=== PATIENT | female | born 1955 | race Caucasian/White ===

== ENCOUNTER → 2021-02-12 | Outpatient (CLI) | payer OTHER, MEDICAID ==
[2021-02-12 15:09] LABS: BLOOD UREA NITROGEN 14 MG/DL (7-18); CARBON DIOXIDE LEVEL 27 MEQ/L (21-32); CHLORIDE LEVEL 98 MEQ/L (98-107); CREATININE FOR GFR 0.84 MG/DL (0.55-1.30); GLOMERULAR FILTRATION RATE > 60.0 (>45); GLUCOSE, FASTING 212 MG/DL (70-100); POTASSIUM SERUM 3.9 MEQ/L (3.5-5.1); SODIUM LEVEL 132 MEQ/L (136-145)
== END ==
LOC: M LAB 13:14
PROVIDERS: ATTEND Internal Medicine Cardiovascular Disease
DX: I10 Essential (primary) hypertension (principal)

== ENCOUNTER → 2021-02-16 | Outpatient (CLI) | payer OTHER ==
[~2021-02-16] MED LIST: ISOVUE-370 76% 100ML VIAL As Ordered ONE
--- NOTE | 2021-02-16 11:33 | REP ---
INDICATION: DYSPNEA, ABN COAGULATION. COMPARISON: None. TECHNIQUE: CT angiogram chest performed following the intravenous administration of 75 cc of Isovue 370. Sagittal and coronal standard and MIP reconstruction images are provided. FINDINGS: Lungs: There is dependent atelectasis posteriorly in the mid and lower lung zones is also some peripheral interstitial change that may reflect some fibrosis. No mass, dense consolidation or apical scar. Some minimal cylindrical bronchiectatic change. There is a 6.6 mm fissural nodule peripherally in the right mid lung zone. Mediastinum: Subcentimeter precarinal, AP window, subcarinal, right paratracheal nodes are present without mass Pulmonary arteries: The main, right and left pulmonary arteries in the mediastinum are without filling defects. Lobar, segmental and visible subsegmental arteries are likewise without filling defects or vessel cut off. Lisandra: No pathologic sized adenopathy. Axilla: No pathologic sized adenopathy. Pleura: No effusion, pleural based mass or calcified pleural plaque. No pneumothorax. Heart: Not enlarged. Thoracic aorta: No aneurysm or dissection. Upper abdominal structures: Liver is seen only in part but I suspect may be enlarged. Fatty infiltration noted there is no visible hepatic mass or biliary dilatation or perihepatic ascites. Gallbladder surgically absent with clips in the fossa. No hiatal hernia. Spleen is not enlarged and appears unremarkable. That portion of pancreas and upper poles of kidneys seen were unremarkable. Adrenal glands normal. Visualized osseous structures: Thoracic spine, sternum, manubrium, medial clavicles, visualized portions of scapulae, humeral heads and ribs show some marginal osteophytes without destructive lesion or fractures anywhere. IMPRESSION: No CT evidence of pulmonary embolism. No infiltrate seen. No aortic aneurysm or dissection. Lung rojo show some dependent atelectatic changes and a 6.6 mm fissural nodule on the right which is solid and according to Fleischner Society guidelines for pulmonary nodule follow-up for new 6-8 mm nodules, a CT recommended in 6-12 months and another at 18-24 months if at high risk, consider the 2nd CT if at low risk for development of malignancy. <Electronically signed by Tirso Murray > 02/16/21 [id number]
== END ==
LOC: M RAD 09:30
PROVIDERS: ATTEND Internal Medicine Cardiovascular Disease
DX: R06.00 Dyspnea, unspecified (principal); R79.1 Abnormal coagulation profile; R91.1 Solitary pulmonary nodule
CPT/HCPCS: 71275; Q9967

== ENCOUNTER → 2021-03-06 | Outpatient (CLI) | payer OTHER | LOC: M LABSMTC 09:07 | PROVIDERS: ATTEND Internal Medicine Interventional Cardiology | DX: Z20.822 Contact with and (suspected) exposure to COVID-19 (principal) ==

== ENCOUNTER → 2021-05-10 | Outpatient (CLI) | payer MEDICARE, OTHER | LOC: M RAD 10:26 | PROVIDERS: ATTEND Surgery Vascular Surgery | DX: I65.23 Occlusion and stenosis of bilateral carotid arteries (principal); I70.0 Atherosclerosis of aorta; M50.30 Other cervical disc degeneration, unspecified cervical region | CPT/HCPCS: 70496; 70498; Q9967 ==

== ENCOUNTER → 2021-06-16 | Outpatient (CLI) | payer OTHER ==
[~2021-06-16] MED LIST changes: -ISOVUE-370 76% 100ML VIAL As Ordered ONE; +PROHANCE 279.3MG/ML 15ML VIAL As Ordered ONE; +PROHANCE 279.3MG/ML 5ML VIAL As Ordered ONE
== END ==
LOC: M RAD 12:18
PROVIDERS: ATTEND Physician Assistant
DX: I65.23 Occlusion and stenosis of bilateral carotid arteries (principal)
CPT/HCPCS: 70547; A9576

== ENCOUNTER → 2022-05-16 | Outpatient (CLI) | payer OTHER, MEDICAID | LOC: M RAD 10:54 | PROVIDERS: ATTEND Pediatrics | DX: I70.0 Atherosclerosis of aorta (principal); J84.170 Interstitial lung disease with progressive fibrotic phenotype in diseases classified elsewhere; Z90.89 Acquired absence of other organs ==

== ENCOUNTER → 2022-07-20 | Outpatient (REF) | payer OTHER, MEDICAID, MEDICARE ==
[2022-07-20 14:24] LABS: ALBUMIN 3.7 G/DL (3.2-5.2); ALKALINE PHOSPHATASE 132 U/L (46-116); ALT/SGPT 24 U/L (7.0-40); AST/SGOT 23 U/L (<34); BILIRUBIN,TOTAL 0.4 MG/DL (0.3-1.2); BLOOD UREA NITROGEN 14 MG/DL (9-23); CALCIUM LEVEL 9.8 MG/DL (8.3-10.6); CARBON DIOXIDE LEVEL 28 MMOL/L (20-31); CHLORIDE LEVEL 100 MMOL/L (98-107); CHOLESTEROL LEVEL 147 MG/DL (<200); CHOLESTEROL RISK RATIO 4.23 (<5); CREATININE FOR GFR 0.82 MG/DL (0.55-1.30); GLOMERULAR FILTRATION RATE > 60.0 (>45); GLUCOSE, FASTING 151 MG/DL (74-106); HDL CHOLESTEROL 34.7 MG/DL (>40); LDL CHOLESTEROL 75.1 MG/DL (<100); NON-HDL-C 112.3 MG/DL; POTASSIUM SERUM 4.7 MMOL/L (3.5-5.1); SODIUM LEVEL 135 MMOL/L (136-145); TOTAL PROTEIN 7.6 G/DL (5.7-8.2); TRIGLYCERIDES LEVEL 186 MG/DL (<150)
[2022-07-20 14:25] LABS: TOTAL 25(OH) VITAMIN D 26.4 NG/ML (20.0-100.0)
[2022-07-20 14:26] LABS: THYROID STIMULATING HORMONE 2.045 uIU/ML (0.55-4.78)
[2022-07-20 15:47] LABS: HEMOGLOBIN A1c 6.9 % (4.0-6.0)
== END ==
LOC: M LAB REF 12:43
PROVIDERS: ATTEND Pediatrics
DX: E11.69 Type 2 diabetes mellitus with other specified complication (principal); E78.2 Mixed hyperlipidemia; E55.9 Vitamin D deficiency, unspecified

== ENCOUNTER → 2022-08-05 | Outpatient (CLI) | payer OTHER, MEDICAID | LOC: M WHC 10:24 | PROVIDERS: ATTEND Pediatrics | DX: Z12.31 Encounter for screening mammogram for malignant neoplasm of breast (principal) ==

== ENCOUNTER → 2022-10-21 | Outpatient (REF) | payer OTHER, MEDICAID ==
[2022-10-21 17:06] LABS: BASO # 0.1 10^3/uL (0.0-0.2); BASO % 1.2 % (0.0-1.0); EOS # 0.2 10^3/uL (0.0-0.5); EOS % 2.7 % (0.0-3.0); HEMATOCRIT 44.6 % (36.0-47.0); HEMOGLOBIN 14.7 g/dl (12.0-15.5); LYMPH # 2.2 10^3/uL (1.5-5.0); LYMPH % 32.3 % (24.0-44.0); MEAN CORPUSCULAR HEMOGLOBIN 30.4 pg (27.0-33.0); MEAN CORPUSCULAR VOLUME 92.3 fl (80.0-96.0); MONO # 0.6 10^3/uL (0.0-0.8); MONO % 8.8 % (2.0-8.0); NEUTROPHILS # 3.7 10^3/uL (1.5-8.5); NEUTROPHILS % 54.9 % (36.0-66.0); PLATELET COUNT, AUTOMATED 275 10^3/uL (150-450); RED BLOOD COUNT 4.83 10^6/uL (4.00-5.40); WHITE BLOOD COUNT 6.7 10^3/uL (4.0-10.0)
[2022-10-21 17:39] LABS: HEMOGLOBIN A1c 6.7 % (4.0-6.0)
== END ==
LOC: M LAB REF 16:29
PROVIDERS: ATTEND Pediatrics
DX: E11.69 Type 2 diabetes mellitus with other specified complication (principal)

== ENCOUNTER → 2022-12-08 | Outpatient (CLI) | payer OTHER, MEDICAID | LOC: M RAD 10:35 | PROVIDERS: ATTEND Physician Assistant | DX: I25.10 Atherosclerotic heart disease of native coronary artery without angina pectoris (principal); Z48.812 Encounter for surgical aftercare following surgery on the circulatory system ==

== ENCOUNTER → 2023-03-17 | Outpatient (REF) | payer OTHER, MEDICAID ==
[2023-03-17 17:41] LABS: CHOLESTEROL RISK RATIO 3.39 (<5); HDL CHOLESTEROL 34.2 MG/DL (>40); LDL CHOLESTEROL 54.6 MG/DL (<100); NON-HDL-C 81.8 MG/DL
[2023-03-17 17:47] LABS: HEMOGLOBIN A1c 5.5 % (4.0-6.0)
== END ==
LOC: M LAB REF 16:35
PROVIDERS: ATTEND Pediatrics
DX: E11.69 Type 2 diabetes mellitus with other specified complication (principal); E78.2 Mixed hyperlipidemia

== ENCOUNTER → 2023-09-12 | Outpatient (CLI) | payer OTHER, MEDICAID | LOC: M RAD 10:21 | PROVIDERS: ATTEND Pediatrics | DX: Z87.891 Personal history of nicotine dependence (principal) ==

== ENCOUNTER → 2023-12-12 | Outpatient (CLI) | payer OTHER, MEDICAID | LOC: M RAD 10:50 | PROVIDERS: ATTEND Physician Assistant | DX: I65.29 Occlusion and stenosis of unspecified carotid artery (principal) ==

== ENCOUNTER → 2024-10-22 | Outpatient (REF) | payer MEDICARE, MEDICAID ==
[2024-10-22 16:56] LABS: BASO # 0.1 10^3/uL (0.0-0.2); BASO % 1.4 % (0.0-1.0); EOS # 0.3 10^3/uL (0.0-0.5); EOS % 4.1 % (0.0-3.0); LYMPH # 2.1 10^3/uL (1.5-5.0); LYMPH % 29.7 % (24.0-44.0); MONO # 0.6 10^3/uL (0.0-0.8); MONO % 9.0 % (2.0-8.0); NEUTROPHILS # 3.9 10^3/uL (1.5-8.5); NEUTROPHILS % 55.5 % (36.0-66.0); PLATELET COUNT, AUTOMATED 317 10^3/uL (150-450)
[2024-10-22 17:25] LABS: CALCIUM LEVEL 9.6 MG/DL (8.3-10.6); CARBON DIOXIDE LEVEL 27.0 MMOL/L (20-31); CHLORIDE LEVEL 103.0 MMOL/L (98-107); CHOLESTEROL LEVEL 107.0 MG/DL (<200); CHOLESTEROL RISK RATIO 3.09 (<5); CREATININE FOR GFR 0.87 MG/DL (0.55-1.30); GLOMERULAR FILTRATION RATE 72.1 (>45); IRON (FE) 72.0 UG/DL (50-170); LDL CHOLESTEROL 47.6 MG/DL (<100); NON-HDL-C 72.4 MG/DL; PERCENT SATURATION 21.6 % (13.2-45.0); POTASSIUM SERUM 5.3 MMOL/L (3.5-5.1); SODIUM LEVEL 141.0 MMOL/L (136-145); TRIGLYCERIDES LEVEL 124.0 MG/DL (<150)
[2024-10-22 17:29] LABS: TOTAL 25(OH) VITAMIN D 62.1 NG/ML (20.0-100.0); VITAMIN B12 LEVEL 1497.0 PG/ML (211-911)
[2024-10-22 17:34] LABS: ESTIMATED AVERAGE GLUCOSE 85.0 MG/DL (60-110)
== END ==
LOC: M LAB REF 14:31
PROVIDERS: ATTEND Pediatrics
DX: E78.2 Mixed hyperlipidemia (principal); I10 Essential (primary) hypertension; E66.3 Overweight; Z68.25 Body mass index [BMI] 25.0-25.9, adult; K91.2 Postsurgical malabsorption, not elsewhere classified

== ENCOUNTER → 2024-12-13 | Outpatient (CLI) | payer MEDICARE, MEDICAID | LOC: M RAD 12:26 | PROVIDERS: ATTEND Pediatrics | DX: I65.23 Occlusion and stenosis of bilateral carotid arteries (principal) ==

== ENCOUNTER → 2025-02-21 | Outpatient (REF) | payer MEDICARE, MEDICAID ==
[2025-02-21 15:32] LABS: CREATININE, URINE 16.6 MG/DL; MALB URINE SIEMENS < 3.0 MG/L
== END ==
LOC: M LAB REF 14:11
PROVIDERS: ATTEND Pediatrics
DX: I10 Essential (primary) hypertension (principal)